=== PATIENT | male | born 1990 | race African-American/Black ===

== ENCOUNTER 2019-04-27 18:16 | Emergency (ER) | payer OTHER ==
[~2019-04-27] VITALS: Ht 167.6 cm; Wt 70.5 kg
[2019-04-27 18:22] VITALS: TEMP 98.3
[2019-04-27 19:40] VITALS: BP 117/68; PULSE 69
== END 2019-04-27 19:41 | disposition home or self-care (01) ==
LOC: COL.ER 18:16
DX: R53.81 Other malaise (principal); R53.83 Other fatigue
CPT/HCPCS: J1885; J2405; J7030

== ENCOUNTER 2019-04-28 23:18 | Emergency (ER) | payer OTHER ==
[~2019-04-28] VITALS: Ht 167.6 cm; Wt 70.5 kg
[2019-04-28 23:54] LABS: COLLECTION METHOD CLEAN CATCH
[2019-04-29 00:01] LABS: MUCOUS Present /lpf; PH 6 (5-8); SQUAMOUS EPITHELIAL None Seen /hpf; URINE APPEARANCE Clear; URINE BACTERIA None Seen /hpf; URINE BILIRUBIN Negative (NEGATIVE); URINE BLOOD Negative (NEGATIVE); URINE COLOR Yellow; URINE GLUCOSE Negative (NEGATIVE); URINE KETONE Negative (NEGATIVE); URINE LEUKOCYTE ESTERASE Negative (NEGATIVE); URINE NITRATE Negative (NEGATIVE); URINE PROTEIN(semi-quant) Negative (NEGATIVE); URINE RBC 0-2 /hpf; URINE UROBILINOGEN >=4.0 mg/dL (NEGATIVE)
[2019-04-29 01:10] VITALS: BP 117/67; PULSE 64; TEMP 98.1
== END 2019-04-29 01:09 | disposition home or self-care (01) ==
LOC: COL.ER 23:18
PROVIDERS: Emergency Medicine
DX: A54.01 Gonococcal cystitis and urethritis, unspecified (principal)
CPT/HCPCS: J0696

== ENCOUNTER → 2020-02-26 | Outpatient (CLI) | payer OTHER | LOC: COL.RAD 12:34 | DX: R31.9 Hematuria, unspecified (principal) | CPT/HCPCS: Q9967 ==